=== PATIENT | male | born 1975 | race Caucasian/White ===

== ENCOUNTER 2022-01-27 07:39 | Observation (INO) ==
[2022-01-27] MEDS ORDERED: Aspirin 325 MG TABLET PO ONE (09:31)
[2022-01-27 09:38] LABS: Basophils # 0.1 K/mcL (0.0-0.2); Basophils % 0.7 %; Eosinophils # 0.2 K/mcL (0.0-0.6); Eosinophils % 2.8 %; Hematocrit 41.6 % (37.5-50.1); Hemoglobin 14.2 g/dL (12.9-16.9); Immature Granulocytes % 0.5 % (0-4); Lymphocytes # 2.4 K/mcL (0.6-4.6); Lymphocytes % 27.8 %; Mean Corpuscular HGB Conc 34.1 g/dL (31.6-35.5); Mean Corpuscular Hemoglobin 30.6 pg (28.0-33.3); Mean Corpuscular Volume 89.7 fL (83.0-100.0); Mean Platelet Volume 9.4 fL (9.4-12.4); Monocytes # 0.5 K/mcL (0.0-1.3); Neutrophils # 5.4 K/mcL (1.6-8.9); Platelet Count 243 K/mcL (140-400); Red Blood Count 4.64 M/mcL (4.19-5.50); Red Cell Distribution Width 13.2 % (11.5-14.5); Segmented Neutrophils % 62.2 %; White Blood Count 8.7 K/mcL (4.3-11.1)
[2022-01-27 09:59] LABS: BUN/Creatinine Ratio 15 (6-26); Blood Urea Nitrogen 12 mg/dL (6-20); Calcium 9.2 mg/dL (8.6-10.3); Carbon Dioxide 26 mEq/L (23-29); Chloride 109 mEq/L (98-107); Glucose 95 mg/dL (70-105); Osmolality,Calculated 288 (280-300); Potassium 4.1 mEq/L (3.5-5.1); Sodium 139 mEq/L (136-145); Troponin I < 0.03 ng/mL (< 0.04); eGFR For African Americans > 60 (> 60); eGFR For Non-African Americans > 60 (> 60)
[2022-01-27] MEDS ORDERED: Ondansetron 4 MG/2 ML VIAL IVP PRN (10:57)
[2022-01-27] MEDS ORDERED: Nicotine 2 MG GUM BC PRN (13:08)
[2022-01-27] MEDS ORDERED: ALPRAZolam 0.25 MG TABLET PO ONE (13:54)
[2022-01-27] MEDS ORDERED: ALPRAZolam 0.5 MG TABLET PO ONE (15:00)
[2022-01-27] MEDS: *HR* Heparin 5,000 UNIT/ML VIAL SQ SCH (17:43)
[2022-01-28 03:31] VITALS: BP 142/79; PULSE 52; TEMP 97.5; O2SAT 97
[2022-01-28] MEDS: *HR* Heparin 5,000 UNIT/ML VIAL SQ SCH (06:07)
== END 2022-01-28 11:37 | disposition home or self-care (01) ==
LOC: 3BNU 07:39 → EMEROOARM 07:39 → SUATTDRO 14:48 → 3BNU 16:00
PROVIDERS: ADMIT Internal Medicine; ATTEND Registered Nurse